=== PATIENT | male | born 1980 | race American Indian/Alaskan Native ===

== ENCOUNTER 2017-01-12 16:45 | Emergency (ER) | payer SELFPAY ==
[2017-01-12] MEDS ORDERED: NACL 0.9% 500 ML 500 ML IV ONE (17:02)
[2017-01-12] MEDS ORDERED: TYLENOL PO ONE (17:03)
[2017-01-12 17:55] LABS: Basophils % (Auto) 0.4 % (0.0-1.8); Eosinophils % (Auto) 0.2 % (0.0-4.3); Hematocrit 36.4 % (35.5-45.6); Hemoglobin 12.1 gm/dl (11.8-15.2); Mean Corpuscular HGB Conc 33 % (32-34); Mean Corpuscular Hemoglobin 30 pg (28-32); Mean Corpuscular Volume 91 fl (84-94); Platelet Count 219 K/mm3 (140-440); Red Cell Distribution Width 13.2 % (13.2-15.2); White Blood Count 18.6 K/mm3 (4.5-11.0)
[2017-01-12 18:04] LABS: INR 1.08 (0.87-1.13)
[2017-01-12 18:06] LABS: Alanine Aminotransferase 71 units/L (7-56); Albumin 4.2 g/dL (3.9-5); Alkaline Phosphatase 119 units/L (35-129); Anion Gap 13 mmol/L; Blood Urea Nitrogen 11 mg/dL (9-20); Calcium 9.5 mg/dL (8.4-10.2); Carbon Dioxide 32 mmol/L (22-30); Chloride 90.2 mmol/L (98-107); Glucose 118 mg/dL (75-100); Potassium 3.8 mmol/L (3.6-5.0); Sodium 131 mmol/L (137-145); Total Protein 8.5 g/dL (6.3-8.2)
[2017-01-12 18:35] LABS: Bilirubin,Urine NEG (Negative); Blood,Urine SM (Negative); Ketones,Urine NEG (Negative); Leukocyte Esterase,Urine NEG (Negative); Nitrite,Urine NEG (Negative)
--- NOTE | 2017-01-12 20:08 | Emergency Department Report ---
HPI - General Chief Complaint: Fever Time Seen by Provider: 01/12/17 19:44 - HPI HPI: This is a 36-year-old Afro-[place] male presents to the emergency department with a four-day history of subjective fever, chills, headache, nausea and vomiting and some intermittent mid abdominal discomfort. He denies any past medical history. He has not taken anything for symptoms prior to presentation. He does not have a primary care physician. He admits to tobacco use but denies any illicit drug use. He denies any chest pain, shortness of breath. Occasionally he will have a cough but says that it hurts his head to do so so he does not cough when possible. No recent travel or sick contacts at home. He denies any vision change, slurred speech or any neurological deficits. ED Past Medical Hx - Past Medical History Previous Medical History?: No - Surgical History Past Surgical History?: No - Social History Smoking Status: Current Every Day Smoker Substance Use Type: None - Medications Home Medications: Home Medications Medication Instructions Recorded Confirmed Last Taken Type Azithromycin [Zithromax TAB] 500 mg PO QDAY #5 tablet 01/13/17 Unknown Rx traMADol [Ultram 50 MG tab] 50 mg PO Q6HR PRN #10 tablet 01/13/17 Unknown Rx ED Review of Systems ROS: Stated complaint: MIGRAINES 5DAYS Other details as noted in HPI Constitutional: chills, fever (subjective) Eyes: denies: eye pain, eye discharge ENT: denies: ear pain, throat pain Respiratory: cough. denies: shortness of breath Cardiovascular: denies: chest pain, palpitations Gastrointestinal: abdominal pain, nausea, vomiting Genitourinary: denies: urgency, dysuria Musculoskeletal: denies: back pain, joint swelling, arthralgia Skin: denies: rash, lesions Neurological: headache. denies: weakness, numbness, paresthesias Physical Exam - Physical Exam Vital Signs: Vital Signs 01/12/17 01/12/17 16:58 17:06 Temperature 102.3 F H Pulse Rate 120 H Respiratory 18 17 Rate Blood Pressure 127/86 O2 Sat by Pulse 95 Oximetry Physical Exam: GENERAL: The patient is well-developed well-nourished. HEENT: Normocephalic. Atraumatic. Extraocular motions are intact. Patient has moist mucous membranes. Pupils equal reactive to light bilaterally. No nystagmus. NECK: Supple. Trachea is midline. CHEST/LUNGS: Clear to auscultation. There is no respiratory distress noted. HEART/CARDIOVASCULAR: Regular. There is mild tachycardia. There is no gallop rub or murmur. ABDOMEN: Abdomen is soft. Mild upper quadrant tenderness to palpation. No guarding or rebound tenderness. Patient has normal bowel sounds. There is no abdominal distention. SKIN: Skin is warm and dry. NEURO: The patient is awake, alert, and oriented. The patient is cooperative. The patient has no focal neurologic deficits. The patient has normal speech. MUSCULOSKELETAL: There is no tenderness or deformity. There is no limitation range of motion. There is no evidence of acute injury. ED Course Vital Signs 01/12/17 01/12/17 16:58 17:06 Temperature 102.3 F H Pulse Rate 120 H Respiratory 18 17 Rate Blood Pressure 127/86 O2 Sat by Pulse 95 Oximetry ED Medical Decision Making - Lab Data Result diagrams: 01/12/17 17:18 01/12/17 17:18 - Radiology Data Radiology results: report reviewed, image reviewed interpreted by me: There is a circular patchy density/opacity to the left middle lung concerning for pneumonia. Abdominal x-ray shows nonspecific nonobstructive bowel gas. CT of the head does not show any acute process including no hemorrhage, mass, shift, diffuse edema or skull fracture. Abdominal ultrasound shows an echogenic nodular mass in the right lobe of the liver which further work up and follow is advised. Contracted gallbladder therefore inconclusive but no obvious stone seen. - Medical Decision Making 36-year-old male presents to the emergency department with complaint of a headache and some cold-like symptoms over the past few days as well as some abdominal discomfort. While the patient did not complain of any cough or chest pain he had a chest x-ray done secondary to his fever. The chest x-ray was read by myself and showed a patchy left middle lung opacity that was concerning for pneumonia. Patient was given Tylenol for his fever. Eventually he had an IV placed and was given Rocephin and azithromycin. Due to his headache a CT of the head without contrast is done that does not show any bleed, shift, mass or any acute process. Abdominal x-ray shows nonspecific nonobstructive bowel gas. Since labs showed a leukocytosis of about 18,000 which may be related to the pneumonia. He had some slight elevation in his LFTs and with his upper abdominal pain a ultrasound was done. The ultrasound showed concern for a echogenic right liver lobe mass. The patient was reevaluated multiple times for multiple hours and says he is feeling greatly improved. His fever has resolved. His tachycardia has resolved. His pain is improved. Patient was given the offer for a CT of the abdomen and pelvis with IV contrast to further evaluate this liver mass. However the patient did not want to stay any further and instead requested outpatient follow-up. The patient was given referrals for both primary care and gastroenterology and understands that if he does not follow-up that there is concern that this liver mass could be something malignant and should not go unchecked. Patient was given some pain medication for his abdominal discomfort and to finish off the headache. At first I forgot to write the patient for azithromycin while we called him to come berry picker the antibiotics and he did get both Rocephin and azithromycin in the emergency department. He will return to the ER with any worsening of symptoms or any acute distress. - Differential Diagnosis pneumonia, sepsis, malignancy, diverticulitis Critical Care Time: No Critical care attestation.: If time is entered above; I have spent that time in minutes in the direct care of this critically ill patient, excluding procedure time. ED Disposition Clinical Impression: Liver mass, right lobe Pneumonia Qualifiers: Pneumonia type: due to unspecified organism Laterality: left Lung location: unspecified part of lung Qualified Code(s): J18.9 - Pneumonia, unspecified organism Headache Qualifiers: Headache type: unspecified Headache chronicity pattern: episodic headache Intractability: not intractable Qualified Code(s): R51 - Headache Abdominal pain Qualifiers: Abdominal location: unspecified location Qualified Code(s): R10.9 - Unspecified abdominal pain Disposition: DC-01 TO HOME OR SELFCARE Is pt being admited?: No Condition: Stable Instructions: Acute Headache (ED), Community-acquired Pneumonia (ED), Abdominal Pain (ED) Additional Instructions: Please follow-up with a primary care doctor the next few days if possible. I have also given a referral for a local prime minister, Dr. Heath, regarding the liver mass and your abdominal pain. Return to the emergency department with any worsening of your symptoms or any acute distress. You've been prescribed a medication that is sedating. Therefore this medication cannot be mixed with alcohol, or taken prior to driving, working, or being responsible for children. Prescriptions: traMADol [Ultram 50 MG tab] 50 mg PO Q6HR PRN #10 tablet PRN Reason: Pain Referrals: PRIMARY CARE, [Primary Care Provider] - 3-5 Days KURT HEATH MD [Staff Physician] - 3-5 Days [facility] [Outside] - 3-5 Days Time of Disposition: 00:12
--- NOTE | 2017-01-12 20:10 | XRay Report ---
FINAL REPORT PROCEDURE: XR CHEST 1V AP TECHNIQUE: Chest radiograph anteroposterior view. CPT 52522 HISTORY: possible Sepsis COMPARISON: No prior studies are available for comparison. FINDINGS: Heart: Normal. Mediastinum/Vessels: Normal contour. Lungs/Pleural space: Patchy left midlung airspace opacity. No effusion or pneumothorax Bony thorax: No acute osseous abnormality. Life support devices: None. IMPRESSION: Patchy left midlung airspace opacity is concerning for pneumonia. Recommend radiographic follow-up to resolution to exclude any underlying disease process.
[2017-01-12] MEDS ORDERED: ROCEPHIN/NS 1 GM/50 ML 1 GM/50 ML BAG IV ONE (20:28)
--- NOTE | 2017-01-12 20:32 | Cat Scan Report ---
FINAL REPORT PROCEDURE: CT HEAD/BRAIN WO CON TECHNIQUE: Computerized tomography of the head was performed without contrast material. HISTORY: headache COMPARISON: No prior studies are available for comparison. FINDINGS: No CT evidence of intracranial mass, hemorrhage, acute territorial infarction, or hydrocephalus. The intracranial arteries are symmetric in density. Calvarium is intact. The visualized paranasal sinuses and mastoids are aerated. IMPRESSION: No CT evidence of acute intracranial abnormality
[2017-01-12] MEDS ORDERED: NACL 0.9% 500 ML 500 ML ONE (20:56)
[2017-01-12] MEDS ORDERED: ZITHROMAX 500 MG in NACL 0.9% 250ML 250 ML IV ONE (21:00)
[2017-01-12 23:10] VITALS: BP 122/90
--- NOTE | 2017-01-12 23:16 | Ultrasound Report ---
FINAL REPORT PROCEDURE: US ABDOMEN COMPLETE TECHNIQUE: Real-time sonography in multiple planes of the abdomen was performed with image documentation. CPT 43046 HISTORY: abd pain COMPARISON: Chest x-ray today FINDINGS: Liver: Mildly heterogeneous liver appearing mildly enlarged. There is a solid echogenic mass in the right lobe of liver measuring 1.3 x 1.2 x 2.0 centimeters without significant color flow by ultrasound. This may reflect a hemangioma or other etiology. Followup triple phase CT scan abdomen is advised to further characterize this lesion in the liver. Gallbladder: Contracted gallbladder but without evidence of gallstones. Intrahepatic bile ducts: Normal caliber . Extrahepatic bile ducts: Normal caliber. Common bile duct 3 millimeters Pancreas: Normal as visualized with suboptimal depiction of the pancreatic tail. Aorta: Visualized portions appear normal. IVC: Visualized portions appear normal. RIGHT kidney: Normal echotexture. No focal renal mass, calculus, or hydronephrosis. Length: 12.6cm. LEFT kidney: Normal echotexture. No focal renal mass, calculus, or hydronephrosis . Length: 12.1cm. Spleen: Normal size and echotexture. No focal lesions. 9 centimeter spleen Intraperitoneal fluid: None . Other: None . IMPRESSION: Echogenic nodular mass right lobe of liver for which further workup and followup is advised. Contracted gallbladder therefore inconclusive but no obvious stones seen.
[2017-01-13] MEDS ORDERED: TYLENOL ONE (00:45)
[2017-01-13] MEDS ORDERED: TYLENOL PO ONE (00:50)
--- NOTE | 2017-01-13 07:21 | XRay Report ---
Abdomen 2 views: History: Abdominal pain. Findings: No free intraperitoneal air. No bowel distention or wall thickening. No radiopaque calculus or abnormal calcification. Impression: Essentially negative abdomen.
== END 2017-01-13 00:50 | disposition home or self-care (01) ==
LOC: ED 16:45
DX: J18.9 Pneumonia, unspecified organism (principal); R16.0 Hepatomegaly, not elsewhere classified; R51 Headache; R10.9 Unspecified abdominal pain; F17.200 Nicotine dependence, unspecified, uncomplicated
CPT/HCPCS: 36415; 70450; 71010; 74020; 76700; 80053; 81001; 82140; 82805; 85025; 85610; 87040; 87086; 93005; 93010; 96365; 96367; 99285; J0456; J0696; J7040; J7050

== ENCOUNTER 2019-09-27 19:23 | Emergency (ER) | payer SELFPAY ==
[2019-09-27 20:05] VITALS: BP 142/94
--- NOTE | 2019-09-27 20:54 | XRay Report ---
RIGHT SHOULDER, 3 VIEWS 09/27/2019 INDICATION / CLINICAL INFORMATION: MAIN: pain and swelling; Right shoulder injury, pt stated a tree limb fell on him today X 1 hour ago. COMPARISON: None available. FINDINGS: No glenohumeral fracture or dislocation. The right AC joint is intact. Signer Name: Dominic Wallace MD Signed: 09/27/2019 8:50 PM Workstation Name: [id number]
[2019-09-27] MEDS ORDERED: HYDROcodone/ACETAMINOPHEN 5-325 MG TAB PO STA (21:59)
--- NOTE | 2019-09-27 22:14 | Emergency Department Report ---
Upper Extremity - HPI Chief Complaint: Extremity Injury, Upper Stated Complaint: SHOULDER INJURY Time Seen by Provider: 09/27/19 21:58 Upper Extremity: Right Shoulder Occurred When: Today Mechanism: Hit with Object (Was walking and struck on the right shoulder with a tree limb that broke off from a tree from a height greater than 10 feet) ED Review of Systems ROS: Stated complaint: SHOULDER INJURY Other details as noted in HPI Comment: All other systems reviewed and negative ED Past Medical Hx - Past Medical History Previous Medical History?: No - Surgical History Past Surgical History?: No - Social History Smoking Status: Current Every Day Smoker Substance Use Type: Alcohol - Medications Home Medications: Home Medications Medication Instructions Recorded Confirmed Last Taken Type Azithromycin [Zithromax TAB] 500 mg PO QDAY #5 tablet 01/13/17 Unknown Rx traMADoL [Ultram 50 MG tab] 50 mg PO Q6HR PRN #10 tablet 01/13/17 Unknown Rx Acetaminophen/Codeine [Tylenol 1 tab PO Q6H PRN #14 tab 08/14/18 Unknown Rx /Codeine # 3 tab] Clindamycin [Clindamycin CAP] 300 mg PO Q8H 10 Days #30 cap 08/14/18 Unknown Rx Ibuprofen [Motrin] 800 mg PO Q8HR PRN #12 tablet 08/14/18 Unknown Rx Ketorolac [Toradol] 10 mg PO Q6H PRN #14 tablet 09/27/19 Unknown Rx Upper Extremity Exam - Exam General: Vital signs noted. No distress. Alert and acting appropriately. Head and Torso: No HEENT Abnormality, No Neck Tenderness, No Chest/Lungs Abnormality, No Abdominal Tenderness, No Back Tenderness Shoulder Exam: Yes Shoulder Tenderness (Small abrasion to the right shoulder with some contusion there is no swelling noted. Pain with palpation. No sulcus sign is noted. Clavicle feels normal. Pulses 2+), Yes Normal Range of Motion in Shoulder, No Clavicle Tenderness, No Shoulder Deformity, No AC Joint Tenderness Arm Exam: No Arm/Humerus Tenderness, No Arm Deformity Elbow: No Elbow Tenderness, No Normal Range of Motion in Elbow, No Elbow Deformity Forearm: No Forearm Tenderness, No Forearm Deformity, No Pain with Pronation, No Pain with Supination Wrist: Yes Normal ROM in Wrist, No Wrist Tenderness, No Wrist Deformity, No Snuffbox Tenderness, No Pain with Axial Thumb Compression Hand: Yes Normal ROM in Digit(s), No Hand Tenderness, No Hand Deformity, No Digit Tenderness, No Digit(s) Deformity, No Tendon Dysfunction CMS Exam: Yes Broken Skin, No Normal Distal Pulses, No Normal Capillary Refill, No Normal Distal Sensation ED Course Vital Signs 09/27/19 20:04 Temperature 98.5 F Pulse Rate 88 Respiratory 20 Rate Blood Pressure 142/94 O2 Sat by Pulse 94 Oximetry ED Medical Decision Making - Radiology Data Radiology results: report reviewed (No acute processes) Critical care attestation.: If time is entered above; I have spent that time in minutes in the direct care of this critically ill patient, excluding procedure time. ED Disposition Clinical Impression: Shoulder contusion, Skin abrasion Disposition: TO HOME OR SELFCARE Is pt being admited?: No Does the pt Need Aspirin: No Condition: Stable Instructions: Contusion in Adults (ED), Abrasion (ED), Ice Pack Application (ED ) Prescriptions: Ketorolac [Toradol] 10 mg PO Q6H PRN #14 tablet PRN Reason: Pain Referrals: PRIMARY CARE, [Primary Care Provider] - 3-5 Days [facility] [Provider Group] - 3-5 Days
== END 2019-09-27 22:57 | disposition home or self-care (01) ==
LOC: ED 19:23
DX: S40.011A Contusion of right shoulder, initial encounter (principal); F17.200 Nicotine dependence, unspecified, uncomplicated; W19.XXXA Unspecified fall, initial encounter; Y93.89 Activity, other specified; Y92.89 Other specified places as the place of occurrence of the external cause; Y99.8 Other external cause status